=== PATIENT | female | born 1980 | race Caucasian/White ===

== ENCOUNTER 2020-08-01 07:36 | Day surgery (SDC) | payer BC ==
[~2020-08-01] VITALS: Ht 167.6 cm; Wt 88.2 kg
[~2020-08-01 07:36] MED LIST: PERCOCET 325 MG1 TA2 PO; ZOFRAN ODT4 MG PO
[2020-08-01 08:27] VITALS: BP 127/74; PULSE 62; TEMP 97.9
--- NOTE | 2020-08-01 08:36 | NUR ---
TO CECIL Hager AT 0805- CALL LIGHT IN REACH WILL CALL FATHER FOR RIDE HOME
[2020-08-01 09:30] VITALS: BP 110/42; PULSE 68; TEMP 97.7
--- NOTE | 2020-08-01 09:30 | NUR ---
PT TO [facility] VIA CART FROM [facility], WALKED TO CHAIR, GAIT STABLE, CALL LIGHT IN REACH, TAKES WATER, STATES THROAT IS SORE.
[2020-08-01 09:45] VITALS: BP 127/74; PULSE 62
[2020-08-01 10:00] VITALS: BP 110/42; PULSE 64
--- NOTE | 2020-08-01 10:00 | NUR ---
DR INTO VISIT PT, PT STATES DR SENT MEDICATION FOR GERD TO [facility]. INT D'CD INTACT PT UP AND DRESSED
[2020-08-01 10:15] VITALS: BP 97/72; PULSE 57
--- NOTE | 2020-08-01 10:15 | NUR ---
REVIEWED DISCHARGE INST. WITH PT ON DIET WITH DILATION, MODERATE SEDATION WITH VERBAL UNDERSTANDING. PT DISCHARGED VIA W/C TO CAR AT 1020
== END 2020-08-01 10:20 | disposition home or self-care (01) ==
LOC: SDCO 07:36
DX: K21.00 Gastro-esophageal reflux disease with esophagitis, without bleeding (principal); Z90.710 Acquired absence of both cervix and uterus
CPT/HCPCS: C1726; J2704; J7030